=== PATIENT | female | born 1965 | race Caucasian/White ===

== ENCOUNTER 2019-02-06 19:11 | Emergency (ER) | payer SELFPAY ==
[~2019-02-06] VITALS: Ht 157.5 cm; Wt 91.6 kg
[2019-02-06 19:19] VITALS: BP 154/90
--- NOTE | 2019-02-06 19:22 | NUR ---
TO LOBBY AWATING BED, VSS.
--- NOTE | 2019-02-06 21:08 | NUR ---
PATIENT AMBULATED TO ER BED 3.
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
--- NOTE | 2019-02-06 21:32 | NUR ---
DR. RAMÍREZ BEDSIDE EVALUATING PT
[2019-02-06] MEDS ORDERED: CYCLOBENZAPRINE 10 MG TAB PO ONE (21:50)
[2019-02-06] MEDS ORDERED: IBUPROFEN 600 MG TAB PO ONE (21:50)
[2019-02-06 22:28] VITALS: BP 145/78
--- NOTE | 2019-02-06 22:28 | NUR ---
Patient discharged with v/s stable. Written and verbal after care instructions given and explained. Patient alert, oriented and verbalized understanding of instructions. Ambulatory with steady gait. All questions addressed prior to discharge. ID band removed. Patient advised to follow up with PMD. Rx of motrin, flexeril given. Patient educated on indication of medication including possible reaction and side effects. Opportunity to ask questions provided and answered.
== END 2019-02-06 22:28 | disposition home or self-care (01) ==
LOC: EDSEX 19:11 → MED 19:11
DX: S16.1XXA Strain of muscle, fascia and tendon at neck level, initial encounter (principal); S39.012A Strain of muscle, fascia and tendon of lower back, initial encounter; M43.16 Spondylolisthesis, lumbar region; V89.2XXA Person injured in unspecified motor-vehicle accident, traffic, initial encounter; Y93.89 Activity, other specified; Y92.89 Other specified places as the place of occurrence of the external cause; Y99.8 Other external cause status
CPT/HCPCS: 72050; 72110; 99283

== ENCOUNTER 2019-11-04 16:23 | Emergency (ER) | payer MEDICAID ==
[~2019-11-04] VITALS: Ht 157.5 cm; Wt 92.5 kg
[2019-11-04 16:30] VITALS: BP 138/63
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
[2019-11-04] MEDS ORDERED: EPINEPHrine 1:1000 - 1 MG/ML AMP IM ONE (16:50)
[2019-11-04] MEDS ORDERED: EPINEPHrine 1:1000 - 1 MG/ML AMP ONE (16:51)
[2019-11-04] MEDS: ALBUTEROL SULFATE/IPRATROPIU 3 ML SOL IH ONE ×2 (17:11→17:22)
--- NOTE | 2019-11-04 17:11 | NUR ---
Breathing treatment administered by respiratory therapist at bedside.
--- NOTE | 2019-11-04 17:26 | NUR ---
Doctor at bedside evaluating pt.
[2019-11-04] MEDS ORDERED: KETOROLAC 30 MG/ML VIAL IVP ONE (17:30)
[2019-11-04 17:45] VITALS: BP 134/71
--- NOTE | 2019-11-04 17:45 | NUR ---
Patient discharged with v/s stable. Written and verbal after care instructions given and explained. Patient alert, oriented and verbalized understanding of instructions. Ambulatory with steady gait. All questions addressed prior to discharge. ID band removed. Patient advised to follow up with PMD. Rx of IBUPROFEN &BENADRYL given. Patient educated on indication of medication including possible reaction and side effects. Opportunity to ask questions provided and answered.
== END 2019-11-04 17:45 | disposition home or self-care (01) ==
LOC: MED 16:23
DX: T78.40XA Allergy, unspecified, initial encounter (principal); J02.8 Acute pharyngitis due to other specified organisms; Z88.0 Allergy status to penicillin
CPT/HCPCS: 94640; 96372; 96374; 99283; J0171; J1885; 81002